=== PATIENT | female | born 1995 | race Caucasian/White ===

== ENCOUNTER 2017-06-07 03:47 | Emergency (ER) | payer BC ==
[~2017-06-07] VITALS: Ht 154.9 cm; Wt 59.1 kg
[2017-06-07 03:51] VITALS: BP 122/71; TEMP 97.6
[2017-06-07 04:22] LABS: COLLECTION METHOD CLEAN CATCH
[2017-06-07 04:38] LABS: MUCOUS Present /lpf; PH 6 (5-8); SQUAMOUS EPITHELIAL None Seen /hpf; URINE APPEARANCE Turbid; URINE BACTERIA None Seen /hpf; URINE BILIRUBIN Negative (NEGATIVE); URINE BLOOD 2+ (NEGATIVE); URINE GLUCOSE 1+ (NEGATIVE); URINE KETONE Trace (NEGATIVE); URINE LEUKOCYTE ESTERASE 2+ (NEGATIVE); URINE PROTEIN(semi-quant) 2+ (NEGATIVE); URINE RBC >50 /hpf; URINE UROBILINOGEN Negative (NEGATIVE)
[2017-06-07 04:39] LABS: URINE COLOR Red; URINE WBC >50 /hpf
[2017-06-07 05:02] LABS: BASO # 0.1 (0.0-0.2); BASO % 0.4 % (0.0-2.0); EOS # 0.1 (0.0-0.7); EOS % 0.5 % (0-4.0); GRAN # 11.3 (1.4-6.5); GRAN % 76.5 % (42.2-75.2); HEMATOCRIT 37.4 % (37.0-47.0); HEMOGLOBIN 12.8 g/dl (12.5-16.0); LYMPH # 2.1 (1.2-3.4); LYMPH % 14.3 % (20.0-51.0); MEAN CELL VOLUME 98 fl (80.0-100.0); MEAN CORPUSCULAR HEMOGLOBIN 34 pg (27.0-31.0); MEAN CORPUSCULAR HGB CONC 34 g/dl (33.0-37.0); MEAN PLATELET VOLUME 9.2 fl (7.4-10.4); MONO # 1.2 (0.1-0.6); PLATELET COUNT 365 K/mm3 (130-400); WHITE BLOOD COUNT 14.8 K/mm3 (4.8-10.8)
[2017-06-07 05:17] LABS: CALCIUM 9.1 mg/dL (8.4-10.2); CREATININE, serum 0.79 mg/dL (0.52-1.25); POTASSIUM 3.6 mmol/L (3.4-5.0)
[2017-06-07] MEDS ORDERED: PYRIDIUM200 M1 PO (05:27)
[2017-06-07] MEDS ORDERED: CEFTIN500 MG PO (05:27)
[2017-06-07 05:58] VITALS: PULSE 85
== END 2017-06-07 05:55 | disposition home or self-care (01) ==
LOC: COL.ER 03:47
PROVIDERS: Emergency Medicine
DX: N30.91 Cystitis, unspecified with hematuria (principal); Z87.42 Personal history of other diseases of the female genital tract
CPT/HCPCS: J0696; J1885; J7030

== ENCOUNTER 2017-09-24 23:34 | Emergency (ER) | payer BC ==
[~2017-09-24] VITALS: Ht 154.9 cm; Wt 63.6 kg
[~2017-09-24 23:34] MED LIST: CEFTIN500 MG PO; PYRIDIUM200 M1 PO
[2017-09-24 23:37] VITALS: BP 117/63; TEMP 98.9
[2017-09-24] MEDS ORDERED: MONONESSA 35 MC1 TA1 (23:40)
[2017-09-24] MEDS ORDERED: PROZAC40 MG PO (23:40)
[2017-09-24 23:53] LABS: COLLECTION METHOD CLEAN CATCH
[2017-09-25 00:05] LABS: MUCOUS Present /lpf; PH 6 (5-8); SQUAMOUS EPITHELIAL None Seen /hpf; URINE APPEARANCE Clear; URINE BACTERIA Moderate /hpf; URINE BILIRUBIN Negative (NEGATIVE); URINE BLOOD 2+ (NEGATIVE); URINE COLOR Yellow; URINE GLUCOSE Negative (NEGATIVE); URINE KETONE Negative (NEGATIVE); URINE LEUKOCYTE ESTERASE 2+ (NEGATIVE); URINE NITRATE Positive (NEGATIVE); URINE PROTEIN(semi-quant) 2+ (NEGATIVE); URINE RBC >50 /hpf; URINE UROBILINOGEN Negative (NEGATIVE)
[2017-09-25] MEDS ORDERED: CEFTIN500 MG PO (00:24)
[2017-09-25] MEDS ORDERED: PYRIDIUM200 M1 PO (00:24)
[2017-09-25 00:37] VITALS: PULSE 75
== END 2017-09-25 00:38 | disposition home or self-care (01) ==
LOC: COL.ER 23:34
PROVIDERS: Emergency Medicine
DX: N30.91 Cystitis, unspecified with hematuria (principal); Z87.440 Personal history of urinary (tract) infections